=== PATIENT | male | born 1970 | race Two or more races ===

== ENCOUNTER 2021-12-21 21:44 | Emergency (ER) | payer OTHER ==
[~2021-12-21] VITALS: Ht 182.9 cm; Wt 122.5 kg
[2021-12-21] MEDS ORDERED: ZESTRIL5 MG PO (21:59)
[2021-12-22] MEDS ORDERED: CORTISPORIN EAR10 M1 OPHT (01:11)
== END 2021-12-22 01:32 | disposition home or self-care (01) ==
LOC: ER 21:44
DX: T16.2XXA Foreign body in left ear, initial encounter (principal); X58.XXXA Exposure to other specified factors, initial encounter; Y93.89 Activity, other specified; Y92.9 Unspecified place or not applicable; Y99.9 Unspecified external cause status; H60.92 Unspecified otitis externa, left ear; Z88.6 Allergy status to analgesic agent